=== PATIENT | male | born 1955 | race Caucasian/White ===

== ENCOUNTER 2020-05-22 15:29 | Outpatient (CLI) | payer OTHER, SELFPAY ==
--- NOTE | ~2020-05-22 | MR_ITS ---
EXAMINATION: MR knee RT wo con DATE: 05/22/2020 17:11 INDICATION: Right knee pain. TECHNIQUE: Magnetic resonance imaging (MRI) of the right knee was performed without intravenous contr ast. Sequences included axial PD-weighted FS FSE, coronal PD-weighted FSE and PD-weighted FS FSE, sag ittal PD-weighted FSE, and sagittal T2-weighted FS FSE. COMPARISON: Right knee radiographs 05/14/2020 FINDINGS: Medial compartment: There is a complex tear involving body and posterior horn of medial meniscus. The medial compartment cartilage is normal. Lateral compartment: There is an undersurface horizontal tear of body of lateral meniscus. There is deep partial thickness cartilage loss of tibial condyle involving the posterior articular surface. The femoral cartilage is normal. Patellofemoral compartment: There is deep partial thickness cartilage loss of medial trochlea. There is patellar cartilage surfac e irregularity. Ligaments and tendons: The anterior and posterior cruciate ligaments are normal. The medial collateral ligament is normal. T here are changes of prior sprain of fibular collateral ligament characterized by increased signal int ensity proximally. There is mild patellar tendinopathy. Fluid: There is a small knee joint effusion. There is a large Hawley's cyst. There is moderate prepatellar an d superficial infrapatellar bursitis. IMPRESSION: 1. Moderate chondrosis of lateral and patellofemoral compartments. 2. Tears of medial and lateral menisci. 3. Small knee joint effusion. 4. Large Hawley's cyst. Reviewed, dictated and finalized at location A.
== END 2020-05-22 15:30 | disposition home or self-care (01) ==
PROVIDERS: PCP Family Medicine; Visit Provider Orthopaedic Surgery
DX: M25.561 Pain in right knee (principal); S83.241A Other tear of medial meniscus, current injury, right knee, initial encounter; S83.281A Other tear of lateral meniscus, current injury, right knee, initial encounter; M25.461 Effusion, right knee; M71.21 Synovial cyst of popliteal space [Baker], right knee
CPT/HCPCS: 73721

== ENCOUNTER 2020-05-29 12:01 | Outpatient (CLI) | payer OTHER, SELFPAY ==
--- NOTE | ~2020-05-29 | US_ITS ---
EXAMINATION: US venous doppler [facility] DATE: 05/29/2020 12:38 INDICATION: Left lower limb pain, swelling and erythema TECHNIQUE: Grayscale ultrasound images without and with compression and Doppler ultrasound images of the left lower extremity veins were obtained. COMPARISON: None. FINDINGS: The visualized portions of left common femoral vein, profunda (deep) femoral vein, femoral vein, popl iteal vein, peroneal veins, posterior tibial veins, gastrocnemius vein and greater saphenous vein out flow are patent. IMPRESSION: 1. No deep venous thrombosis in the left lower limb. Reviewed, dictated and finalized at location A.
== END 2020-05-29 12:02 | disposition home or self-care (01) ==
PROVIDERS: PCP Family Medicine; Visit Provider Nurse Practitioner Family
DX: M79.662 Pain in left lower leg (principal)
CPT/HCPCS: 93971

== ENCOUNTER 2020-06-10 10:01 | Outpatient (CLI) | payer OTHER, SELFPAY ==
--- NOTE | 2020-06-10 10:34 | ECG_ITS ---
Measurements Intervals [place] Rate: 92 P: 27 NC: 169 QRS: -17 QRSD: 102 T: 6 QT: 363 QTc: 450 Interpretive Statements SINUS RHYTHM BORDERLINE T WAVE ABNORMALITY- INFERIOR LEADS BORDERLINE ECG Electronically Signed On 06-10-2020 12:22:41 CDT by Yunior Hilario D.O.
[2020-06-10 10:38] LABS: Basophils Absolute Auto 0.1 K/mm3 (0.0-0.1); Eosinophils Absolute Auto 0.3 K/mm3 (0-0.3); Eosinophils Percent Auto 6.3 % (0-4.4); Hematocrit 39.4 % (42.0-52.0); Hemoglobin 14.2 g/dL (14.0-18.0); Immature Granulocyte Absolute 0.01 K/mm3 (0.00-0.031); Immature Granulocyte Percent A 0.2 % (0-0.5); Lymphocytes Absolute Auto 0.89 K/mm3 (0.9-3.2); Lymphocytes Percent Auto 17.6 % (18.3-44.2); Mean Corpuscular Hemoglobin 36.5 pg (26-34); Mean Corpuscular Volume 101.3 fl (80-100); Mean Platelet Volume 8.5 fl (7.4-10.4); Monocytes Absolute Auto 0.6 K/mm3 (0.1-0.6); Monocytes Percent Auto 12.7 % (2.6-8.5); Neutrophils Absolute Auto 3.1 K/mm3 (1.3-6.7); Neutrophils Percent Auto 62.2 % (45.5-73.1); Platelet Count Result 165 k/mm3 (150-375); Red Blood Count 3.89 M/mm3 (4.6-6.20); Red Cell Distribution Width 11.9 % (11.5-14.5); White Blood Count 5.1 K/mm3 (4.5-10.0)
[2020-06-10 11:12] LABS: Add Urine Microscopic? YES; Alanine Aminotransferase 112 U/L (4-50); Albumin Level 4.2 g/dL (3.5-5.1); Alkaline Phosphatase 123 U/L (38-126); Anion Gap 7 mmol/L (8-16); Appearance Urine Clear (Clear); Aspartate Amino Transferase 211 U/L (17-59); Bacteria Urine Trace /hpf; Bilirubin Urine Negative (Negative); Bilirubin,Total 1.1 mg/dL (0.2-1.3); Blood Urea Nitrogen 7 mg/dL (9-20); Blood Urine Negative (Negative); CRP 2.2 mg/dL (<1.0); Calcium 9.8 mg/dL (8.4-10.2); Carbon Dioxide 31 mmol/L (22-30); Chloride 97 mmol/L (98-107); Cholesterol 190 mg/dL (0-200); Color Urine Yellow (Yellow); Estimated Glomerular Filt Rate > 60; Glucose 118 mg/dL (75-110); Glucose Urine UA Negative (Negative); HDL Direct 92 mg/dL; Ketones Urine Negative (Negative); Leukocyte Esterase Ur Negative LEU/UL (NEGATIVE); Nitrate Urine Negative (Negative); Potassium 4.3 mmol/L (3.4-5.0); Protein Urine Negative (Negative); RBC Urine 0-2 /hpf (0-2); Sodium 135 mmol/L (137-145); Specific Grav Ur 1.013 (1.001-1.035); Triglycerides 77 mg/dL (<150); Uric Acid 5.7 mg/dL (3.5-8.5); WBC Urine 0-3 /hpf (0-3)
[2020-06-10 11:34] LABS: Erythrocyte Sedimentation Rate 28 mm/hr (0-20); Rheumatoid Factor < 8.6 IU/ML (<12)
[2020-06-10 11:44] LABS: LDL Cholesterol Direct 95 mg/dL
== END 2020-06-10 10:02 | disposition home or self-care (01) ==
LOC: ANHLAB 10:04
PROVIDERS: PCP Internal Medicine; Visit Provider Internal Medicine
DX: E66.01 Morbid (severe) obesity due to excess calories (principal); M19.90 Unspecified osteoarthritis, unspecified site; L20.9 Atopic dermatitis, unspecified; Z85.46 Personal history of malignant neoplasm of prostate; R60.0 Localized edema; M25.50 Pain in unspecified joint; Z01.818 Encounter for other preprocedural examination; I20.9 Angina pectoris, unspecified
CPT/HCPCS: 36415; 80053; 80061; 81001; 84443; 84550; 85025; 85652; 86038; 86140; 86430; 93005

== ENCOUNTER 2020-06-20 07:15 | Outpatient (CLI) | payer OTHER, SELFPAY ==
--- NOTE | ~2020-06-20 | US_ITS ---
US abdomen complete EXAMINATION: US Abdomen Complete INDICATION: Abnormal blood chemistries. PROCEDURE: Realtime High Resolution abdomen ultrasound. COMPARISON: No prior studies for comparison FINDINGS: Gallbladder within normal limits. No gallstones, pericholecystic fluid, gallbladder wall t hickening or biliary dilatation. Common bile duct measures 5.7 mm. Liver echotexture is increased, consistent with fatty infiltration.. Pancreas within normal limits. Pancreatic tail is obscured by bowel gas. Spleen is unremarkeable. Renal echotexture is within norm al limits bilaterally without hydronephrosis, contour deforming mass or renal stone. Right kidney cielo sures 11.1 cm. Left kidney measures 9.9 cm. Visualized aspects of the aorta and IVC are within normal limits. Portal vein is patent. No sonograph ic Austin's sign indicated by the technologist. IMPRESSION: 1: Hepatic steatosis. Reviewed, dictated and finalized at location A. IMPRESSION: 1: Hepatic steatosis.
[2020-06-20 10:36] LABS: Folic Acid 8.7 ng/mL (2.76->20)
== END 2020-06-20 07:16 | disposition home or self-care (01) ==
PROVIDERS: PCP Internal Medicine; Visit Provider Internal Medicine
DX: D53.1 Other megaloblastic anemias, not elsewhere classified (principal); R79.89 Other specified abnormal findings of blood chemistry; K76.0 Fatty (change of) liver, not elsewhere classified
CPT/HCPCS: 36415; 76700; 82607; 82746

== ENCOUNTER 2020-06-22 02:36 | Outpatient (CLI) | payer OTHER, SELFPAY ==
[2020-06-22 18:16] LABS: SARS-CoV-2 RNA PCR Negative
== END 2020-06-22 02:37 | disposition home or self-care (01) ==
LOC: ANHCOVIDDT 02:37
PROVIDERS: PCP Internal Medicine; Visit Provider Orthopaedic Surgery
DX: Z01.812 Encounter for preprocedural laboratory examination (principal); Z20.828 Contact with and (suspected) exposure to other viral communicable diseases
CPT/HCPCS: 87635; C9803; U0003

== ENCOUNTER 2020-06-22 14:24 | Outpatient (CLI) | payer OTHER, SELFPAY ==
--- NOTE | 2020-06-22 14:49 | ECHO_ITS ---
Patient Info Name: Hitesh Oropeza Age: 64 years : 1955 Gender: Male Ht: 69 in Wt: 263 lbs BSA: 2.46 m2 HR: 83 bpm BP: 158 / 101 mmHg Heart Rhythm: Sinus Rhythm Technical Quality: Fair Exam Date: 06/22/2020 2:57 PM Exam Location: [facility] Patient Status: Outpatient Admit Date: 06/22/2020 Staff Ordering Physician: Meek Kothari MD Mixer Whipped Topping: Alejandro Beckman RDCS Attending Provider: Meek Kothari MD Exam Type: CA echo doppler color flow Study Info Indications R94.31 - Abnormal electrocardiogram ECG EKG Complete two-dimensional, color flow and Doppler transthoracic echocardiogram is performed. History/Risk Factors Abnormal EKG. Summary 1. Complete two-dimensional, color flow and Doppler transthoracic echocardiogram is performed. 2. Left ventricular chamber dimension is normal. 3. Left ventricular systolic function is normal, estimated at 60-65%. 4. The left ventricular diastolic function is grade I diastolic dysfunction. 5. E/e' 7 is not elevated. 6. There is trace tricuspid valve regurgitation. 7. No pulmonary hypertension, estimated pulmonary arterial systolic pressure is 25 mmHg. Left Ventricle E/e' 7 is not elevated. Left ventricular chamber dimension is normal. Left ventricular systolic function is normal, estimated at 60-65%. The left ventricular diastolic function is grade I diastolic dysfunction. Right Ventricle Right ventricular chamber dimension is normal. Right ventricular systolic function is normal. Left Atria Left atrial chamber dimension is normal. Right Atria Right atrial chamber dimension is normal. Aortic Valve The aortic valve is trileaflet. There is no aortic valve stenosis. There is no aortic valve regurgitation. Pulmonic Valve There is no pulmonic regurgitation. Mitral Valve There is no mitral valve stenosis. There is no mitral valve regurgitation. Tricuspid Valve There is trace tricuspid valve regurgitation. No pulmonary hypertension, estimated pulmonary arterial systolic pressure is 25 mmHg. Pericardium/Pleural There is no pericardial effusion. Inferior Vena Cava Normal inferior vena cava with >50% collapse upon inspiration consistent with normal right atrial pressure, 5 mmHg. Aorta The aortic root size at the sinus of Valsalva is normal. Left Ventricular Outflow Tract Name Value Normal LVOT 2D LVOT Diameter 2.0 cm LVOT Doppler LVOT Peak Gradient 4 mmHg LVOT Mean Gradient 2 mmHg LVOT VTI 21 cm LVOT VTI/AV VTI Ratio 1.0 LVOT Stroke Volume 66 ml LVOT CO 5.3 l/min LVOT CI 2.2 l/min/m2 Mitral Valve Name Value Normal MV Doppler MV Decel
== END 2020-06-22 14:25 | disposition home or self-care (01) ==
PROVIDERS: PCP Internal Medicine; Visit Provider Internal Medicine
DX: R94.31 Abnormal electrocardiogram [ECG] [EKG] (principal)
CPT/HCPCS: 93306

== ENCOUNTER 2020-06-24 02:07 | Day surgery (SDC) | payer OTHER, SELFPAY ==
[2020-06-15 15:11] VITALS: BMI 39.1
--- NOTE | 2020-06-18 12:36 | PM.IMHP ---
H&P: HPI History of Present Illness Chief complaint: right knee medial and lateral meniscus tear Narrative: Knee Pain Pt. presents with Right knee pain, Euflexxa injection given to the Rt knee and Lt knee performed on 03/02/20. Pt. states the Rt knee is still very painful and without change. Involved knee: right and bilateral Onset: gradual Location of pain: other (entire knee region on the Rt side ) Pain scale (0-10): 8 Character: stabbing, throbbing and dull ache Timing of pain: intermittent Exacerbated by: weight bearing, stairs and prolonged activity Relieved by: elevation, ice, rest, NSAIDs and other (gel injections ) Associated symptoms: Reports grating and stiffness; Denies fever(s), erythema or warmth History of occupational/recreational activity with repetitive motion: No History of prior knee injury: No Review of Systems Review of Systems: All systems reviewed & are unremarkable except as noted in HPI and below Constitutional: Constitutional: Denies headache(s) and Denies weakness Eyes: Eyes: Denies blurry vision, Denies change in vision and Denies loss of vision ENT: Denies dizziness, Denies dry mouth, Denies headache(s) and Denies nasal congestion Cardiovascular: Cardiovascular: Denies chest pain, Denies syncope, Denies leg edema and Denies dyspnea on exertion Respiratory: Respiratory: Denies cough and Denies dyspnea on exertion Gastrointestinal: Gastrointestinal: Denies abdominal pain, Denies constipation and Denies diarrhea Genitourinary: Genitourinary: Denies urinary frequency Musculoskeletal: Musculoskeletal: Reports as per HPI and Denies numbness Integumentary/Breasts: Skin/Breast: Reports system reviewed and no additional complaints, except as docu Neurologic: Denies dizziness, Denies syncope, Denies headache(s), Denies loss of vision, Denies numbness and Denies weakness Psychiatric: Psychiatric: Reports no additional psychiatric complaints Endocrine: Endocrine: Reports no additional endocrine complaints Hematologic/Lymphatic: Hematologic/Lymphatic: Reports no additional hematologic/lymphatic complaints [facility] Past Medical History Medical History (Updated 06/09/20 @ 13:28 by Meek Kothari MD) Bilateral knee pain Medial meniscus tear Swelling of lower extremity Surgical History Surgical History History of arthroscopy of left knee Family History Family History Other Family history of arthritis Family history of malignant neoplasm Hypertension Social History Social History Smoking status: Never smoker Smokeless tobacco user: chewing tobacco Additional smoking assessment comments: CHEWING TOBACCO FOR 30 YEARS Alcohol intake: current Drinks per week: 70 Spiritual care concerns: No Meds Home Medications and Allergies Home Medications Medication Instructions Recorded Confirmed Type chlorhexidine gluconate 4 % 1 applic TOPICAL ONCE #237 ml 06/04/20 06/15/20 Rx topical liquid Allergies Allergy/AdvReac Type Severity Reaction Status Date / Time Penicillins Allergy Unknown unknown- Verified 06/15/20 15:12 occured as a child anthrax vaccine Allergy SWELLING, Verified 06/15/20 15:12 RASH Exam Narrative: Exam Narrative: Exam Const Constitutional General: cooperative Nutritional Appearance: average body habitus Orientation/consciousness: patient oriented x3 Constitutional Limitations: no limitations HENMT Head: normal to inspection Ears: hearing grossly normal bilaterally General nose exam: Normal external nose present Face and sinus: normal facial exam Mouth: moist mucous membranes Teeth and gingiva: dentition normal Eyes General: appearance normal, both eyes and all related structures Pupils: Yes Equal, round and reactive pupils present EOM: EOMs intact bilaterally Neck Neck: Yes
[2020-06-24] VITALS (9 sets, daily range): BP systolic 139–161; BP diastolic 78–98; PULSE 73–86; RESP 10–18; TEMP 36.1–36.6; O2SAT 93–100
--- NOTE | 2020-06-24 07:21 | WPDHPUPDATE1 ---
History and Physical Update Update Date/Time: 06/24/20 07:21 History and Physical has been reviewed, including an updated exam of the patient. There are NO changes in the patient's condition. Risks, benefits, and alternatives have been discussed and questions answered. Patient agrees to proceed with procedure.
--- NOTE | 2020-06-24 08:38 | WPDANESEPPF ---
Anes - Initial Pre Proc Eval Procedure: Operation Date: 06/24/20 11:30 Proposed Procedures p Right Knee Arthroscopy, Proceed As Indicated - Jay Wagner MD Date/Time: 06/24/20 08:38 Surgeon: Jay Wagner MD Pre Op Diagnosis: right knee medial and lateral meniscus tear Patient Data Age: 64 Gender: M Height: 5 ft 9 in Weight: 120.2 kg Allergies Allergy/AdvReac Type Severity Reaction Status Date / Time Penicillins Allergy Unknown unknown- Verified 06/24/20 10:01 occured as a child anthrax vaccine Allergy SWELLING, Verified 06/24/20 10:01 RASH Home Medications Medication Instructions Recorded Confirmed Type chlorhexidine gluconate 4 % 1 applic TOPICAL ONCE #237 ml 06/04/20 06/24/20 Rx topical liquid hydrocodone-acetaminophen [[place]] 1 tablet PO Q6H PRN #30 tablet NS 06/24/20 Rx Patient hx anesthesia problems: none Family hx anesthesia problems: none PMFSH Past Medical History Medical History (Updated 06/09/20 @ 13:28 by Meek Kothari MD) Bilateral knee pain Medial meniscus tear Swelling of lower extremity Surgical History Surgical History History of arthroscopy of left knee Family History Family History Other Family history of arthritis Family history of malignant neoplasm Hypertension Social History Social History Smoking status: Never smoker Smokeless tobacco user: chewing tobacco Additional smoking assessment comments: CHEWING TOBACCO FOR 30 YEARS Alcohol intake: current Drinks per week: 70 Spiritual care concerns: No Anes - Eval Final PreProcedure Day of Procedure 06/24/20 08:38 Patient weight: morbidly obese Heart: regular rate and rhythm Lungs: clear to auscultation Airway: Mallampati scale class II Neurological: alert and oriented Last oral intake: >/= 8 hours ASA classification: III Emergent: no Anesthetic plan: proceed Anesthesia type and monitoring: general LMA and standard monitoring Informed Consent: The patient's anesthetic plan and its attendant risks and benefits were discussed with the patient/family/POA. Questions were solicited and answers provided to the satisfaction of the patient/family/POA.
[2020-06-24] MEDS: ACETAMINOPHEN 500 MG TABLET 1000 MG PO (09:46)
[2020-06-24] MEDS: CELECOXIB 200 MG CAPSULE PO (09:46)
[2020-06-24] MEDS: LACTATED RINGERS 1,000 ML 30 ML IV CONT ×2 (09:47→11:49)
--- NOTE | 2020-06-24 10:11 | SUR.PREOP ---
CRUTCHES ORDERED FOR PT. STATES HAS USED CRUTCHES BEFORE W/ PRIOR LT KNEE SCOPE AND WAS ESSENTIALLY FWB WITHOUT CRUTCHES ON AFFECTED LEG POST OP WITH LAST SURGERY. PT STATES TRAINING NOT NEEDED/COMFORTABLE W/ USE
[2020-06-24] MEDS: CLINDAMYCIN 900 MG/NS 50 ML 900 MG/50 ML PIGGYBACK 50 MG IVPB (10:48)
[2020-06-24] MEDS: fentaNYL CITRATE INJ (*CRX) 100 MCG/2 ML VIAL 25 MCG IV PUSH ×3 (12:20→12:57)
--- NOTE | 2020-06-24 12:59 | SUR.PHASEI ---
Dr. Wagner made aware of decrease in pulse on operative leg and came to the bedside to assess himself. Dr. Wagner removed the lizzie wrap and will come and reassess patient before discharge. Patient's made aware of the delay and is on board with plan of care.
[2020-06-24] MEDS: oxyCODONE HCL (*CRX) 5 MG TAB IR PO (13:23)
--- NOTE | 2020-06-24 13:46 | PM.PROC ---
Procedure Note - Detailed Date of procedure: 06/24/20 Pre-op diagnosis: right knee medial and lateral meniscus tear Post-op diagnosis: other (RIGHT MEDIAL MENISCUS TEAR) Procedure performed: RIGHT KNEE SCOPE Description of procedure: PATIENT WAS TAKEN TO THE OR. RIGHT LEG WAS PREPPED AND DRAPED STERILE. TROCARS WERE PLACED IN THE USUAL FASHION. CAMERA WAS INTRODUCED. THERE WAS CHONDROMALACIA TO THE PATELLA FEMORAL JOINT. THERE WAS A LOT OF SYNOVITIS IN HOFFA'S SYNOVIUM. THE MEDIAL COMPARTMENT SHOWED CHONDROMALACIA TO THE MED FEMORAL CONDYLE. THERE WAS A COMPLEX TEAR TO THE MEDIAL MENISCUS A PARTIAL MEDIAL MENISCECTOMY WAS THEN PREFORMED. APPROXIMATELY 20% OF THE MEDIAL MENISCUS WAS REMOVED. THERE WAS A STABLE POSTERIOR RIM OF MENISCUS AFTER RESECTION. THE ACL WAS INTACT. THE LATERAL MENISCUS WAS NOT TORN AND THERE WAS NO APPRECIABLE CHONDROMALACIA TO THE LATERAL COMPARTMENT. THE PATELLO FEMORAL JOINT UNDERWENT CHONDROPLASTY. SYNOVECTOMY WAS PREFORMED IN HOFFA'S SYNOVIUM. THE WOUNDS WERE APPROXIMATED WITH 4.0 NYLON. STERILE DRESSING WAS APPLIED. PATIENT WAS EXTUBATED. Anesthesia: GLMA Surgeon: Jay Wagner MD Estimated blood loss (mL): 5 Complications: No immediate complications Condition: stable Disposition: PACU
== END 2020-06-24 14:11 | disposition home or self-care (01) ==
PROVIDERS: PCP Internal Medicine; Visit Provider Orthopaedic Surgery
PROC: (CPT 29870; principal; 2020-06-24 11:30)
DX: M23.331 Other meniscus derangements, other medial meniscus, right knee (principal); M94.261 Chondromalacia, right knee; M65.861 Other synovitis and tenosynovitis, right lower leg; F17.220 Nicotine dependence, chewing tobacco, uncomplicated; E66.01 Morbid (severe) obesity due to excess calories; Z68.39 Body mass index [BMI] 39.0-39.9, adult
CPT/HCPCS: 29881; A9270; J1100; J2250; J2405; J2704; J3010; J7120

== ENCOUNTER 2020-12-24 10:00 | Outpatient (CLI) | payer OTHER, SELFPAY | END 2020-12-24 10:01 | disposition home or self-care (01) | LOC: ANHCOVIDVC 10:00 | PROVIDERS: PCP Internal Medicine | DX: Z23 Encounter for immunization (principal) | CPT/HCPCS: 0001A; 91300 ==

== ENCOUNTER 2021-01-14 09:59 | Outpatient (CLI) | payer OTHER, SELFPAY | END 2021-01-14 10:00 | disposition home or self-care (01) | LOC: ANHCOVIDVC 09:59 | PROVIDERS: PCP Internal Medicine | DX: Z23 Encounter for immunization (principal) | CPT/HCPCS: 0002A; 91300 ==

== ENCOUNTER 2021-05-20 06:40 | Outpatient (RCR) | payer OTHER, SELFPAY ==
[2021-05-20 08:38] LABS: Cortisol Baseline 8.73 ug/dL
== END 2021-08-18 23:59 | disposition home or self-care (01) ==
LOC: ANHVASCINF 06:40
PROVIDERS: PCP Internal Medicine; Visit Provider Internal Medicine Nephrology
DX: E87.1 Hypo-osmolality and hyponatremia (principal); R94.7 Abnormal results of other endocrine function studies
CPT/HCPCS: 36415; 82533; 96372; J0834

== ENCOUNTER → 2021-07-17 00:29 | Outpatient (CLI) | payer OTHER, SELFPAY ==
[2021-07-17 13:41] LABS: Influenza Control Positive
[2021-07-17 17:39] LABS: SARS-CoV-2 RNA PCR Negative
== END ==
PROVIDERS: PCP Internal Medicine; Visit Provider Internal Medicine
DX: R09.89 Other specified symptoms and signs involving the circulatory and respiratory systems (principal); Z20.822 Contact with and (suspected) exposure to COVID-19
CPT/HCPCS: 87804; C9803; U0003; U0005

== ENCOUNTER 2021-10-08 02:25 | Day surgery (SDC) | payer OTHER, SELFPAY ==
[2021-07-01 14:00] VITALS: BMI 37.8
[2021-09-28 14:07] VITALS: BMI 37.8
[2021-10-08 08:00] VITALS: BP 144/83; PULSE 88; RESP 18; TEMP 36.3; O2SAT 99; BMI 37.9
[2021-10-08] MEDS: LACTATED RINGERS 1,000 ML 150 ML IV CONT (08:22)
--- NOTE | 2021-10-08 08:24 | P.PNAN_ITS ---
Anes - Initial Pre Proc Eval Procedure: Operation Date: 10/08/21 09:00 Proposed Procedures p Esophagogastroduodenoscopy & Screening Colonoscopy - Herbie Ruano MD Date/Time: 10/08/21 08:24 Surgeon: Herbie Brody MD Pre Op Diagnosis: winters's esophagus, neoplasm screening Patient Data Age: 65 Gender: M Height: 1.75 m Weight: 116.5 kg Last Vital Signs Temp 36.3 C L 10/08/21 08:00 Pulse 88 10/08/21 08:00 Resp 18 10/08/21 08:00 BP 144/83 H 10/08/21 08:00 Pulse Ox 99 10/08/21 08:00 Allergies Allergy/AdvReac Type Severity Reaction Status Date / Time Penicillins Allergy Unknown unknown- Verified 10/08/21 08:09 occured as a child anthrax vaccine Allergy SWELLING, Verified 10/08/21 08:09 RASH Home Medications Medication Instructions Recorded Confirmed Type mecobalamin (vitamin B12) 5,000 5,000 mcg PO DAILY 03/18/21 10/08/21 History mcg disintegrating tablet lisinopril 40 mg tablet 40 mg PO DAILY #90 tablet 06/04/21 10/08/21 Rx cholecalciferol (vitamin D3) 50 50 mcg PO DAILY 07/30/21 10/08/21 History mcg (2,000 unit) capsule rosuvastatin 5 mg tablet 5 mg PO DAILY #90 tablet 08/30/21 10/08/21 Rx Patient hx anesthesia problems: none Family hx anesthesia problems: none Results Review: All pre-operative results and documents have been reviewed as part of the pre-operative evaluation. [facility] Past Medical History Medical History Allergies Bilateral knee pain Inflammatory arthritis (~2019) Medial meniscus tear Prostate cancer Swelling of lower extremity Surgical History Surgical History History of arthroscopy of left knee History of prostate surgery Family History Family History Other Family history of arthritis Family history of malignant neoplasm Hypertension Social History Social History Smoking status: Never smoker Smokeless tobacco user: chewing tobacco Second hand tobacco smoke exposure: No Additional smoking assessment comments: CHEWING TOBACCO FOR 30 YEARS Alcohol intake: current Drinks per week: 42 Substance use: never Substance use type: does not use Living arrangements: with family Spiritual care concerns: No Anes - Eval Final PreProcedure Day of Procedure 10/08/21 08:24 Patient weight: obese Heart: regular rate and rhythm Lungs: clear to auscultation Airway: Mallampati scale class III Neurological: alert and oriented Last oral intake: >/= 8 hours ASA classification: III Emergent: no Anesthetic plan: proceed Anesthesia type and monitoring: general GIVS and standard monitoring Results Review: All pre-operative results and documents have been reviewed as part of the pre-operative evaluation. Informed Consent: The patient's anesthetic plan and its attendant risks and benefits were discussed with the patient/family/POA. Questions were solicited and answers provided to the satisfaction of the patient/family/POA.
--- NOTE | 2021-10-08 08:50 | PM.HPGS ---
History of Present Illness History of Present Illness Consent: Risks, benefits, and alternatives have been discussed and questions answered. Patient agrees to proceed with procedure. Chief complaint: winters's esophagus, neoplasm screening Narrative: Hitesh Oropeza is a 65 year old male with gerd but controlled without meds (last egd about 10 years ago), also needs another screening colonoscopy- last 14-15 years ago. Review of Systems Constitutional: Constitutional: Denies headache(s) and Denies weakness Eyes: Eyes: Denies blurry vision ENT: Reports Normal hearing present, Denies headache(s) and Denies neck pain Cardiovascular: Cardiovascular: Denies chest pain and Denies dyspnea Respiratory: Respiratory: Denies dyspnea Gastrointestinal: Gastrointestinal: Reports no additional gastrointestinal complaints Genitourinary: Genitourinary: Denies dysuria Musculoskeletal: Musculoskeletal: Denies neck pain Integumentary/Breasts: Skin/Breast: Denies dry skin Neurologic: Reports Normal hearing present, Denies headache(s) and Denies weakness Psychiatric: Psychiatric: Denies anxiety Endocrine: Endocrine: Denies change in body appearance Hematologic/Lymphatic: Hematologic/Lymphatic: Denies easy bleeding Allergic/Immunologic: Allergic/Immunologic: Denies urticaria PMFSH Past Medical History Medical History (Updated 10/08/21 @ 08:51 by Herbie Brody MD) Allergies Bilateral knee pain Colon cancer screening GERD (gastroesophageal reflux disease) Inflammatory arthritis (~2019) Medial meniscus tear Prostate cancer Swelling of lower extremity Surgical History Surgical History History of arthroscopy of left knee History of prostate surgery Family History Family History Other Family history of arthritis Family history of malignant neoplasm Hypertension Social History Social History Smoking status: Never smoker Smokeless tobacco user: chewing tobacco Second hand tobacco smoke exposure: No Additional smoking assessment comments: CHEWING TOBACCO FOR 30 YEARS Alcohol intake: current Drinks per week: 42 Substance use: never Substance use type: does not use Living arrangements: with family Spiritual care concerns: No Meds Home Medications and Allergies Home Medications Medication Instructions Recorded Confirmed Type mecobalamin (vitamin B12) 5,000 5,000 mcg PO DAILY 03/18/21 10/08/21 History mcg disintegrating tablet lisinopril 40 mg tablet 40 mg PO DAILY #90 tablet 06/04/21 10/08/21 Rx cholecalciferol (vitamin D3) 50 50 mcg PO DAILY 07/30/21 10/08/21 History mcg (2,000 unit) capsule rosuvastatin 5 mg tablet 5 mg PO DAILY #90 tablet 08/30/21 10/08/21 Rx Allergies Allergy/AdvReac Type Severity Reaction Status Date / Time Penicillins Allergy Unknown unknown- Verified 10/08/21 08:09 occured as a child anthrax vaccine Allergy SWELLING, Verified 10/08/21 08:09 RASH Vital Signs Vital Signs - 24 hr 10/08/21 08:00 Temperature 97.4 F L Pulse Rate 88 Respiratory Rate 18 Blood Pressure 144/83 H Pulse Oximetry 99 Exam Const: General: comfortable and no acute distress HENMT: General nose exam: Normal nares present Eyes: General: appearance normal, both eyes and all related structures Neck: Neck: no JVD Resp: Auscultation: clear to auscultation bilaterally Cardio: Rate: regular rate Rhythm: regular rhythm GI: Inspection: non-distended GI Palp: Yes Soft to palpation Skin: General skin exam: normal color Neuro: General: gait normal Speech: normal speech Extrem: General: normal to inspection Psych: Mental Status: mental status grossly normal Assessment and Plan Assessment and plan (1) GERD (gastroesophageal reflux disease): Code(s): K21.
[2021-10-08 09:32] VITALS: BP 116/78; PULSE 78; RESP 22; O2SAT 98
[2021-10-08 09:42] VITALS: BP 125/81; PULSE 75; RESP 17; O2SAT 98
[2021-10-08 09:52] VITALS: BP 134/75; PULSE 76; RESP 20; O2SAT 99
--- NOTE | 2021-10-08 10:18 | SUR.OPER ---
EGD Start: 858 End 907 Colonoscopy Start 912 End 927
== END 2021-10-08 10:01 | disposition home or self-care (01) ==
PROVIDERS: PCP Internal Medicine; Visit Provider Internal Medicine Gastroenterology
PROC: 0DJ08ZZ Inspection of Upper Intestinal Tract, Via Natural or Artificial Opening Endoscopic (ICD-10-PCS; CPT 43235; principal; 2021-10-08 09:00)
DX: Z12.11 Encounter for screening for malignant neoplasm of colon (principal); K63.5 Polyp of colon; D12.4 Benign neoplasm of descending colon; K57.30 Diverticulosis of large intestine without perforation or abscess without bleeding; K64.8 Other hemorrhoids; K22.70 Barrett's esophagus without dysplasia; K44.9 Diaphragmatic hernia without obstruction or gangrene; K29.70 Gastritis, unspecified, without bleeding; F17.220 Nicotine dependence, chewing tobacco, uncomplicated; E66.9 Obesity, unspecified; Z68.37 Body mass index [BMI] 37.0-37.9, adult
CPT/HCPCS: 45385; 43239; 88305; J2704; J7120

== ENCOUNTER 2024-10-07 17:20 | Emergency (ER) | payer MEDICARE, OTHER, SELFPAY ==
--- OUTSIDE RECORDS SUMMARY | 2024-10-07 17:26 | XMS_ITS | Clinical Summary ---
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 Role Phone Meek Kothari MD Primary Care Provider [phone] Allergies Active Allergy Reactions Criticality Noted Date Comments Anthrax Vaccine 05/05/2021 Penicillins 05/05/2021 Medications Medication Sig Dispensed Refills Start Date End Date Status lisinopril (PRINIVIL) 20 MG tablet Take 20 mg by mouth 1 (one) time each day Active cyanocobalamin (VITAMIN B-12) 1000 MCG tablet Take 1,000 mcg by mouth 1 (one) time each day Active Active Problems Problem Noted Date Diagnosed Date Alcohol intake above recommended sensible limits 05/05/2021 Systolic hypertension 05/05/2021 Personal history of prostate cancer 05/05/2021 Hyposmolality and/or hyponatremia 05/01/2021 Family History Medical History Relation Comments Hyponatremia Neg Hx Social History Tobacco Use Types Packs/Day Years Used Date Smoking Tobacco: Never Smokeless Tobacco: Current Comments:6 puches per day Alcohol Use Standard Drinks/Week Comments Yes 50 (1 standard drink = 0.6 oz pu re alcohol) Sex and Gender Information Value Date Recorded Sex Assigned at Not on file Gender Identity Not on file Sexual Orientation Not on file Last Filed Vital Signs Vital Sign Reading Time Taken Comments Blood Pressure 124/72 05/05/2021 10:55 AM CDT Pulse 96 05/05/2021 10:55 AM CDT Temperature 36.7 ??C (98 ??F) 05/05/2021 10:55 AM CDT Respiratory Rate - - Oxygen Saturation - - Inhaled Oxygen Concentration - - Weight 117 kg (257 lb) 05/05/2021 10:55 AM CDT Height 175.3 cm (5' 9 ) 05/05/2021 10:55 AM CDT Body Mass Index 37.95 05/05/2021 10:55 AM CDT Plan of Treatment Health Maintenance Due Date Last Done Comments Pneumococcal PPSV23/PCV13 65 + Years / Low and Medium Risk (1 of 4 - PCV) 2022 Influenza Vaccine (#1) 2024 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
--- OUTSIDE RECORDS SUMMARY | 2024-10-07 17:26 | XMS_ITS | Clinical Summary ---
Author Organization [facility] Address [address] [place] [address]. 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 Gender Identity Not on file Sexual Orientation Not on file Plan of Treatment Health Maintenance Due Date Last Done Comments Colorectal Cancer Screening Colonoscopy (10 Years) 1955 Hepatitis C 01/01/1976 DTaP, Tdap and Td Vaccines (1 - Tdap) 1976 Zoster Vaccines (1 of 2) 01/01/2008 Pneumococcal Vaccine: 65+ Years (1 of 1 - PCV) 2022 COVID-19 Vaccine ( season) 2024 08/08/2022, 09/02/2021, 01/14/2021, Additional history exists RSV Immunization or 60+ Years Completed 09/21/2023 Influenza Adult Completed 08/01/2024, 07/13, 09/02/2021, Additional history exists Meningococcal B Vaccine Aged Out No l onger eligible based on patient's age to complete this topic Meningococcal Vaccine Aged Out No batsheva aristides eligible based on patient's age to complete this topic RSV Immunizations Under 20 Months Aged Out No longer eligible based on patient's age to complete this topic Insurance
[2024-10-07 18:03] VITALS: BP 148/92; PULSE 82; RESP 18; TEMP 36.3; O2SAT 99
--- NOTE | 2024-10-07 18:54 | ED.EPISTAXIS ---
HPI - Epistaxis General Chief complaint: Epistaxis Stated complaint: Nose Bleed both Time Seen by Provider: 10/07/24 17:30 History of Present Illness HPI Narrative: Patient presents accompanied by his . He is complaining of epistaxis that has been present for 2 hours. He has been holding pressure. He denies any injury or trauma. He denies use of blood thinning medications. he does admit that the air inside his home is extremely dry Related Data Home Medications ?Medication ?Instructions ?Recorded ?Confirmed ?Last Taken ?Type mecobalamin (vitamin B12) 5,000 5,000 mcg PO DAILY 03/18/21 04/11/24 Unknown History mcg disintegrating tablet cholecalciferol (vitamin D3) 50 50 mcg PO DAILY 07/30/21 04/11/24 Unknown History mcg (2,000 unit) capsule Allergies Allergy/AdvReac Type Severity Reaction Status Date / Time Penicillins Allergy Unknown unknown- Verified 10/07/24 18:46 occured as a child anthrax vaccine Allergy SWELLING, Verified 10/07/24 18:46 RASH Review of Systems Review of Systems: All systems reviewed & are unremarkable except as noted in HPI and below Constitutional: Constitutional: Reports no additional constitutional complaints ENT: Reports system reviewed and no additional complaints, except as documented and Reports as per HPI Cardiovascular: Cardiovascular: Reports no additional cardiovascular complaints Respiratory: Respiratory: Reports no additional respiratory complaints Gastrointestinal: Gastrointestinal: Reports no additional gastrointestinal complaints [facility] Past Medical History Medical History (Updated 10/08/24 @ 00:01 by Oksana Hidalgo) Other fatigue Tobacco abuse BMI greater than 40 Right knee DJD Left knee DJD Primary osteoarthritis of left knee Other chronic pain Chronic pain of left knee Colon cancer screening GERD (gastroesophageal reflux disease) Inflammatory arthritis (~2019) Allergies Prostate cancer Swelling of lower extremity Medial meniscus tear Bilateral knee pain Surgical History Surgical History History of prostate surgery History of arthroscopy of left knee Family History Family History Other Family history of arthritis Family history of malignant neoplasm Hypertension Social History Social History Smoking status: Light tobacco smoker (chewing tobacco ) Smokeless tobacco user: chewing tobacco Second hand tobacco smoke exposure: No Additional smoking assessment comments: CHEWING TOBACCO FOR 30 YEARS Alcohol intake: current Drinks per week: 24 Substance use: never Substance use type: does not use Lack of Transportation: No Lack of Food: Never True Current Housing: I Have Housing Concerned About Future Housing: No Difficulty Paying Gas/Electric Bills: No Difficulty Paying for Meds: No Currently Unemployed: No Education: Associate Degree Difficulty w/ Childcare or Family Care: No Living arrangements: with family Occupation/Education: retired Spiritual care concerns: No Exam Const: General: cooperative, no acute distress, alert and awake Orientation/consciousness: oriented to person, oriented to place and oriented to time HENMT: Head: normal to inspection, normocephalic and atraumatic Face/Nose/Sinus: Epistaxis present on the right anterior source, active bleeding and other ( active bleeding on arrival, clip immediately applied.) Mouth: Yes moist mucous membranes Resp: Effort & Inspection: normal respiratory effort and able to speak in complete sentences Auscultation: clear to auscultation bilaterally, no crackles, no rales, no rhonchi and no wheezes Cardio: Palpation: normal PMI Rate: regular rate Rhythm: regular rhythm Heart sounds: S1 normal heart sound present and S2 normal heart sound present Neuro: General: oriented to person, oriented to place and oriented to time Cranial nerves: Yes CN's II-XII intact bilaterally Psych: Appearance: grossly normal Thought process: Normal thought process present Insight: Good insight present (Psych) Judgement: Good judgement present (Psych) Course Course Emergency Course: Patient actively bleeding on arrival, clip applied to the nose, pressure stopped the bleeding, would have preferred to apply some Afrin and reapply the clip, Afrin was not and pyxis, so could not use this. Instructed patient and on use of that medication home. Advised that if bleeding would resume, they go to the emergency department immediately. They are in agreement with this plan Level of Care: Express Care Visit Vital Signs Vital signs: Vital Signs Temperature 97.4 F L 10/07/24 18:03 Pulse Rate 82 10/07/24 18:03 Respiratory Rate 18 10/07/24 18:03 Blood Pressure 148/92 H 10/07/24 18:03 Pulse Oximetry 99 10/07/24 18:03 Oxygen Delivery Room Air 10/07/24 18:03 Temperature 97.4 F L 10/07/24 18:03 Pulse Rate 82 10/07/24 18:03 Respiratory Rate 18 10/07/24 18:03 Blood Pressure 148/92 H 10/07/24 18:03 Pulse Oximetry 99 10/07/24 18:03 Oxygen Delivery Room Air 10/07/24 18:03 Procedures Epistaxis Control right: Epistaxis Control Date: 10/07/24 Epistaxis Control Time: 17:30 Direct Inspection: yes and anterior source identified Clots Removed by: manually Epistaxis Control Narrative: external clip applied. Pressure did stop the bleeding MDM - Epistaxis MDM Narrative Medical decision making narrative: Patient actively bleeding on arrival, clip applied to the nose. Pressure stopped the bleeding, would have preferred to apply some Afrin and reapply the clip, Afrin was not and pyxis, so could not use this. Instructed patient and on use of that medication home. Advised that if bleeding would resume, they go to the emergency department immediately. They are in agreement with this plan Discharge instructions reviewed with patient, as well as provided in writing per nursing staff. The instructions also include specific and strict return/GO TO THE ER as well as f/u information. All questions have been answered, and the patient deny any further questions with discharge and discharge plan. Some parts of this dictation were generated by voice recognition software and may contain typographical and/or grammatical inaccuracies. Differential Diagnosis Differential diagnosis: Likely anterior epistaxis Medical Records Attestation: I reviewed the patient's medical records. Discharge Plan Discharge Clinical Impression: Epistaxis Patient Disposition: Home, Self-Care Condition: Stable Instructions: Antibiotic Form, Nosebleed (ED) Additional Instructions: use 1 spray of Afrin to each nostril, then reapply clip. Avoid any straining. Emergency department if bleeding restarts. 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
== END 2024-10-07 19:30 | disposition home or self-care (01) ==
PROVIDERS: Emergency Provider Nurse Practitioner Family
DX: R04.0 Epistaxis (principal); F17.220 Nicotine dependence, chewing tobacco, uncomplicated; M17.0 Bilateral primary osteoarthritis of knee; K21.9 Gastro-esophageal reflux disease without esophagitis; Z85.46 Personal history of malignant neoplasm of prostate
CPT/HCPCS: 99213; A9270; G0463